=== PATIENT | male | born 1955 | race Caucasian/White ===

== ENCOUNTER 2017-08-21 12:00 | Inpatient (IN) | payer MEDICARE, MEDICAID ==
[~2017-08-21] VITALS: Ht 6038.7 cm; Wt 86.4 kg
[~2017-08-21 12:00] MED LIST: ASCO500C15 PO; CHOL10008 PO; FURO80TA3 PO; GABA-532 PO; HYDR-3965 PO; LACT10SO PO; MULT-1179 PO; POLY17PO10 PO; POTA20PA3
[2017-08-21 13:12] LABS: BASOPHILS % (AUTO) 0.3 % (0-1); EOSINOPHILS # (AUTO) 0.2 X10'3 (0-0.9); EOSINOPHILS % (AUTO) 2.2 % (0-6); HEMOGLOBIN 10.5 g/dl (14.0-17.9); LYMPHOCYTES # (AUTO) 1.4 X10'3 (1.1-4.8); LYMPHOCYTES % (AUTO) 18.9 % (21-51); MEAN CORPUSCULAR HGB CONC 33.8 % (33.0-36.5); MEAN CORPUSCULAR VOLUME 91.6 FL (78-98); MEAN PLATELET VOLUME 9.3 FL (7.4-10.4); MONOCYTES # (AUTO) 0.8 X10'3 (0-0.9); MONOCYTES % (AUTO) 11.3 % (2-12); NEUTROPHILS % (AUTO) 67.3 % (42-75); PLATELET COUNT 164 X10'3 (140-440); RED BLOOD COUNT 3.38 X10'6 (4.70-6.10); RED CELL DISTRIBUTION WIDTH 21.6 % (11.5-14.5); WHITE BLOOD COUNT 7.5 X10'3 (4.5-11.0)
[2017-08-21 13:23] LABS: INR 1.2 INR; PARTIAL THROMBOPLASTIN TIME 28 SECONDS (22-32); PROTHROMBIN TIME 12.8 SECONDS (9.0-12.0)
[2017-08-21 13:25] LABS: ALANINE AMINOTRANSFERASE 36 U/L (12-78); ALBUMIN 1.8 G/DL (3.4-5.0); ALBUMIN/GLOBULIN RATIO 0.3 (1.1-1.5); ALKALINE PHOSPHATASE 227 IU/L (46-116); ANION GAP 6 (8-16); ASPARTATE AMINO TRANSFERASE 43 U/L (10-37); BILIRUBIN,TOTAL 1.4 MG/DL (0.1-1.0); BLOOD UREA NITROGEN 22 MG/DL (7-18); BUN/CREATININE RATIO 17.1 (5.4-32.0); CALCIUM 8.8 MG/DL (8.5-10.1); CHLORIDE 113 MMOL/L (99-107); CREATININE 1.29 MG/DL (0.60-1.10); POTASSIUM 4.3 MMOL/L (3.5-5.1); SODIUM 144 MMOL/L (135-145); TOTAL CARBON DIOXIDE 24.8 MMOL/L (24-32); TOTAL PROTEIN 7.6 G/DL (6.4-8.2); eGFR 56 ML/MIN
[2017-08-21 13:26] LABS: GLUCOSE 98 MG/DL (70-104)
[2017-08-21] MEDS ORDERED: lactulose 20gm/30ml cup RC STA (13:33)
[2017-08-21] MEDS ORDERED: ondansetron/PF 4mg/2ml inj IV PRN (13:55)
[2017-08-21] MEDS ORDERED: insulin Lispro (HumaLOG) vial - multi-dose SQ SCH (13:55)
[2017-08-21] MEDS ORDERED: magnesium hydroxide 30ml (MOM) UD suspension PO PRN (13:55)
[2017-08-21] MEDS ORDERED: MESSAGE TO PHARMACY PO ONE (13:55)
[2017-08-21] MEDS ORDERED: magnesium 4gm in 100ml NS 100 ML IV PRN (13:55)
[2017-08-21] MEDS ORDERED: potassium Cl 40MEQ/NS 500ml 500 ML IV PRN ×2 (13:55)
[2017-08-21] MEDS ORDERED: dextrose ORAL solution 15 GM/59 ML bottle PO PRN ×2 (13:55)
[2017-08-21] MEDS ORDERED: mag hydrox/Alum hydrox/simeth 30ml oral suspension PO PRN (13:55)
[2017-08-21] MEDS ORDERED: potassium Cl 20 mEq SR tablet PO PRN ×2 (13:55)
[2017-08-21] MEDS ORDERED: dextrose 50%-water 50ml dispensing syringe IV PRN ×2 (13:55)
[2017-08-21] MEDS ORDERED: magnesium 2GM in 50ml NS 50 ML IV PRN (13:55)
[2017-08-21] MEDS ORDERED: acetaminophen 325mg tablet PO PRN (13:55)
[2017-08-21] MEDS ORDERED: magnesium Cl slow-release 64mg tablet PO PRN (13:55)
[2017-08-21] MEDS ORDERED: glucagon, human recombinant 1mg kit SUBCUT PRN (13:55)
[2017-08-21] MEDS: lactulose 20gm/30ml cup PO SCH ×2 (14:00→22:08)
[2017-08-21 14:29] LABS: CLARITY,URINE CLEAR (Clear); COLOR,URINE YELLOW (Yellow); GLUCOSE, URINE NEGATIVE (Neg); KETONES,URINE NEGATIVE (Neg); LEUKOCYTE ESTERASE ,URINE NEGATIVE (Neg); NITRITES, URINE NEGATIVE (Neg); OCCULT BLOOD,URINE NEGATIVE (Neg); PROTEIN,URINE NEGATIVE (Neg)
[2017-08-21 14:31] LABS: UA COLLECTION TYPE STRAIGHT CATH
[2017-08-21 14:41] LABS: URINE AMPHETAMINE SCREEN NEGATIVE (Neg); URINE BARBITUATE SCREEN NEGATIVE (Neg); URINE BENZODIAZEPINES SCREEN NEGATIVE (Neg); URINE CANNABINOID SCREEN NEGATIVE (Neg); URINE COCAINE SCREEN NEGATIVE (Neg); URINE METHADONE SCREEN NEGATIVE (Neg); URINE OPIATE SCREEN POSITIVE (Neg); URINE PHENCYCLIDINE SCREEN NEGATIVE (Neg)
[2017-08-21 15:43] LABS: HEMOGLOBIN A1C 4.3 % (4.5-6.2)
[2017-08-21] MEDS: insulin glargine (Lantus) pen - multi-dose SQ SCH (21:00)
[2017-08-22] MEDS: lactulose 20gm/30ml cup PO SCH ×4 (02:28→21:19)
[2017-08-22 06:36] LABS: ALBUMIN 1.5 G/DL (3.4-5.0); ANION GAP 10 (8-16); BLOOD UREA NITROGEN 20 MG/DL (7-18); BUN/CREATININE RATIO 15.2 (5.4-32.0); CALCIUM 8.8 MG/DL (8.5-10.1); CHLORIDE 121 MMOL/L (99-107); CREATININE 1.32 MG/DL (0.60-1.10); MAGNESIUM 1.8 MG/DL (1.5-2.4); POTASSIUM 3.7 MMOL/L (3.5-5.1); SODIUM 151 MMOL/L (135-145); TOTAL CARBON DIOXIDE 20.5 MMOL/L (24-32); eGFR 55 ML/MIN
[2017-08-22 06:45] LABS: GLUCOSE 85 MG/DL (70-104)
[2017-08-22 08:00] VITALS: BP 122/57
[2017-08-22] MEDS: K and/or MAG REPLACEMENT MC SCH (08:00)
[2017-08-22] MEDS: sodium chloride 0.45% 1,000 ML IV SCH ×3 (08:44→21:14)
[2017-08-22] MEDS ORDERED: OMEP-50 (10:56)
[2017-08-22] MEDS ORDERED: NEOM500T13 PO ×2 (10:56)
[2017-08-22] MEDS ORDERED: PROP10TA10 (10:56)
[2017-08-22] MEDS ORDERED: HYDR-565 PO (10:57)
[2017-08-22 11:00] VITALS: BP 130/59
[2017-08-22 15:00] VITALS: BP 126/56
[2017-08-22 15:25] LABS: ALBUMIN 1.8 G/DL (3.4-5.0); ANION GAP 9 (8-16); BLOOD UREA NITROGEN 20 MG/DL (7-18); BUN/CREATININE RATIO 15.3 (5.4-32.0); CALCIUM 9.1 MG/DL (8.5-10.1); CHLORIDE 113 MMOL/L (99-107); CREATININE 1.31 MG/DL (0.60-1.10); POTASSIUM 3.9 MMOL/L (3.5-5.1); SODIUM 145 MMOL/L (135-145); TOTAL CARBON DIOXIDE 23.1 MMOL/L (24-32); eGFR 55 ML/MIN
[2017-08-22 15:26] LABS: GLUCOSE 106 MG/DL (70-104)
[2017-08-22 19:00] VITALS: BP 133/55
[2017-08-22] MEDS: insulin glargine (Lantus) pen - multi-dose SQ SCH (21:00)
[2017-08-22] MEDS: enoxaparin 40mg/0.4ml syringe SUBCUT SCH (21:21)
[2017-08-22 23:00] VITALS: BP 122/66
[2017-08-23] MEDS: lactulose 20gm/30ml cup PO SCH ×4 (02:03→20:36)
[2017-08-23 03:00] VITALS: BP 118/53
[2017-08-23 06:00] VITALS: BP 135/52
[2017-08-23] MEDS: K and/or MAG REPLACEMENT MC SCH (08:00)
[2017-08-23 08:46] LABS: BASOPHILS % (AUTO) 0.7 % (0-1); EOSINOPHILS # (AUTO) 0.4 X10'3 (0-0.9); EOSINOPHILS % (AUTO) 5.2 % (0-6); HEMATOCRIT 27.3 % (42.0-52.0); HEMOGLOBIN 9.4 g/dl (14.0-17.9); LYMPHOCYTES # (AUTO) 1.6 X10'3 (1.1-4.8); LYMPHOCYTES % (AUTO) 23.9 % (21-51); MEAN CORPUSCULAR HEMOGLOBIN 31.5 PG (27.0-31.0); MEAN CORPUSCULAR HGB CONC 34.6 % (33.0-36.5); MEAN CORPUSCULAR VOLUME 90.9 FL (78-98); MEAN PLATELET VOLUME 9.8 FL (7.4-10.4); MONOCYTES # (AUTO) 0.7 X10'3 (0-0.9); MONOCYTES % (AUTO) 10.4 % (2-12); NEUTROPHILS % (AUTO) 59.8 % (42-75); PLATELET COUNT 143 X10'3 (140-440); RED CELL DISTRIBUTION WIDTH 21.4 % (11.5-14.5); WHITE BLOOD COUNT 6.7 X10'3 (4.5-11.0)
[2017-08-23] MEDS: enoxaparin 40mg/0.4ml syringe SUBCUT SCH (09:22)
[2017-08-23] MEDS: sodium chloride 0.45% 1,000 ML IV SCH ×2 (09:23→16:25)
[2017-08-23 11:00] VITALS: BP 132/51
[2017-08-23] MEDS ORDERED: pantoprazole 40 MG vial IV ONE (14:50)
[2017-08-23 15:00] VITALS: BP 130/51
[2017-08-23] MEDS: neomycin sulfate 500mg tablet PO SCH (17:18)
[2017-08-23 19:00] VITALS: BP 147/64
[2017-08-23] MEDS: furosemide 40mg tablet PO SCH (20:36)
[2017-08-23] MEDS: insulin glargine (Lantus) pen - multi-dose SQ SCH (20:36)
[2017-08-23 23:00] VITALS: BP 120/45
[2017-08-24] MEDS: neomycin sulfate 500mg tablet PO SCH ×3 (00:10→18:02)
[2017-08-24] MEDS: sodium chloride 0.45% 1,000 ML IV SCH ×3 (00:25→13:55)
[2017-08-24] MEDS: lactulose 20gm/30ml cup PO SCH ×4 (01:55→21:00)
[2017-08-24 03:00] VITALS: BP 116/52
[2017-08-24 06:00] VITALS: BP 112/44
[2017-08-24] MEDS: K and/or MAG REPLACEMENT MC SCH (08:00)
[2017-08-24] MEDS: pantoprazole 40 MG vial IV SCH (09:19)
[2017-08-24] MEDS: furosemide 40mg tablet PO SCH ×2 (09:20→21:00)
[2017-08-24] MEDS: ascorbic acid 500mg tablet PO SCH (09:20)
[2017-08-24] MEDS: multivitamins, therapeutics tablet PO SCH (09:20)
[2017-08-24] MEDS: gabapentin 300mg capsule PO SCH (09:20)
[2017-08-24] MEDS: vitamin D (cholecalciferol) 1,000 unit tablet PO SCH (09:21)
[2017-08-24 15:00] VITALS: BP 126/39
[2017-08-24] MEDS ORDERED: magnesium Cl slow-release 64mg tablet PO PRN (18:45)
[2017-08-24 19:00] VITALS: BP 133/56
[2017-08-24] MEDS: insulin glargine (Lantus) pen - multi-dose SQ SCH (20:51)
[2017-08-24] MEDS: lactobacillus rhamnosus 10,000 MMU CELLS/CAPSULE PO SCH (20:59)
[2017-08-24 23:00] VITALS: BP 103/47
[2017-08-25] MEDS: sodium chloride 0.45% 1,000 ML IV SCH ×3 (00:40→16:31)
[2017-08-25] MEDS: lactulose 20gm/30ml cup PO SCH ×4 (01:44→20:16)
[2017-08-25] MEDS: neomycin sulfate 500mg tablet PO SCH ×3 (01:44→16:31)
[2017-08-25 03:00] VITALS: BP 106/49
[2017-08-25 06:00] VITALS: BP 99/45
[2017-08-25] MEDS: K and/or MAG REPLACEMENT MC SCH (08:00)
[2017-08-25] MEDS: lactobacillus rhamnosus 10,000 MMU CELLS/CAPSULE PO SCH ×2 (08:54→20:17)
[2017-08-25] MEDS: pantoprazole 40 MG vial IV SCH (08:54)
[2017-08-25] MEDS: vitamin D (cholecalciferol) 1,000 unit tablet PO SCH (08:55)
[2017-08-25] MEDS: ascorbic acid 500mg tablet PO SCH (08:55)
[2017-08-25] MEDS: gabapentin 300mg capsule PO SCH (08:55)
[2017-08-25] MEDS: multivitamins, therapeutics tablet PO SCH (08:55)
[2017-08-25] MEDS: furosemide 40mg tablet PO SCH ×2 (08:55→20:17)
[2017-08-25 11:00] VITALS: BP 114/53
[2017-08-25 15:00] VITALS: BP 128/42
[2017-08-25 19:30] VITALS: BP 133/64
[2017-08-25] MEDS: insulin glargine (Lantus) pen - multi-dose SQ SCH (20:58)
[2017-08-25 21:58] VITALS: BP 130/60
[2017-08-26] MEDS: neomycin sulfate 500mg tablet PO SCH ×2 (00:02→08:40)
[2017-08-26] MEDS: sodium chloride 0.45% 1,000 ML IV SCH ×2 (00:06→09:10)
[2017-08-26] MEDS: lactulose 20gm/30ml cup PO SCH ×3 (00:54→14:25)
[2017-08-26 06:00] VITALS: BP_SYST 102; BP_SYST 106; BP_SYST 126; BP_DIAS 36; BP_DIAS 76; BP_DIAS 83
[2017-08-26] MEDS: K and/or MAG REPLACEMENT MC SCH (08:00)
[2017-08-26] MEDS: pantoprazole 40 MG vial IV SCH (08:25)
[2017-08-26] MEDS: lactobacillus rhamnosus 10,000 MMU CELLS/CAPSULE PO SCH (08:37)
[2017-08-26] MEDS: furosemide 40mg tablet PO SCH (08:39)
[2017-08-26] MEDS: multivitamins, therapeutics tablet PO SCH (08:41)
[2017-08-26] MEDS: gabapentin 300mg capsule PO SCH (08:41)
[2017-08-26] MEDS: vitamin D (cholecalciferol) 1,000 unit tablet PO SCH (08:42)
[2017-08-26] MEDS: ascorbic acid 500mg tablet PO SCH (08:42)
[2017-08-26 10:00] VITALS: BP 125/60
[2017-08-27] MEDS ORDERED: pantoprazole 40mg Tablet.DR PO SCH (07:30)
== END 2017-08-26 15:50 | DRG 441 ==
LOC: ER 12:00 → EDBD 13:51 → ED HOLD 13:51 → PCU 3S 08-22 08:27 → ORTHO 4S 08-25 18:45
PROVIDERS: ADMIT Internal Medicine; ATTEND Family Medicine
DX: K72.90 Hepatic failure, unspecified without coma (principal); E43 Unspecified severe protein-calorie malnutrition; I85.10 Secondary esophageal varices without bleeding; I48.91 Unspecified atrial fibrillation; Z89.611 Acquired absence of right leg above knee; K26.9 Duodenal ulcer, unspecified as acute or chronic, without hemorrhage or perforation; K70.30 Alcoholic cirrhosis of liver without ascites; I25.10 Atherosclerotic heart disease of native coronary artery without angina pectoris; I73.9 Peripheral vascular disease, unspecified; N18.9 Chronic kidney disease, unspecified; K21.9 Gastro-esophageal reflux disease without esophagitis; F10.20 Alcohol dependence, uncomplicated; Z91.14 Patient's other noncompliance with medication regimen; Z95.1 Presence of aortocoronary bypass graft; Z79.899 Other long term (current) drug therapy; Z86.73 Personal history of transient ischemic attack (TIA), and cerebral infarction without residual deficits
CPT/HCPCS: 36415; 71045; 80048; 80053; 80305; 81003; 82140; 82948; 83036; 83735; 84484; 85025; 85610; 85730; 87070; 93005; 93922; 93926; 99285; A4344; A6212; A6213; A6250; A6258; A6266; A6446; A6449; C9113; J1650; J1815; J2405; J7030

== ENCOUNTER 2017-09-04 08:45 | Day surgery (SDC) | payer MEDICARE, MEDICAID ==
[~2017-09-04 08:45] MED LIST changes: -HYDR-3965 PO; +HYDR-565 PO; +NEOM500T13 PO; +PROP10TA10
[2017-09-04] MEDS ORDERED: LIDOcaine 2% 5ml jelly ONE (09:25)
[2017-09-04] MEDS ORDERED: LACTC PO (15:21)
[2017-09-04] MEDS ORDERED: FURO80TA3 PO (15:22)
[2017-09-04] MEDS ORDERED: ZIN220C PO (15:25)
[2017-09-04] MEDS ORDERED: SULF1TAB49 PO (15:39)
== END 2017-09-04 10:45 | disposition home or self-care (01) ==
LOC: WOUND CARE 08:45
PROVIDERS: ATTEND Surgery
DX: T87.81 Dehiscence of amputation stump (principal); E11.622 Type 2 diabetes mellitus with other skin ulcer; L89.894 Pressure ulcer of other site, stage 4; L97.111 Non-pressure chronic ulcer of right thigh limited to breakdown of skin; L98.491 Non-pressure chronic ulcer of skin of other sites limited to breakdown of skin; L97.811 Non-pressure chronic ulcer of other part of right lower leg limited to breakdown of skin; E11.621 Type 2 diabetes mellitus with foot ulcer; L97.421 Non-pressure chronic ulcer of left heel and midfoot limited to breakdown of skin; L89.629 Pressure ulcer of left heel, unspecified stage; E11.42 Type 2 diabetes mellitus with diabetic polyneuropathy; E11.51 Type 2 diabetes mellitus with diabetic peripheral angiopathy without gangrene; I77.1 Stricture of artery; I48.2 Chronic atrial fibrillation; I25.10 Atherosclerotic heart disease of native coronary artery without angina pectoris; J44.9 Chronic obstructive pulmonary disease, unspecified; K21.9 Gastro-esophageal reflux disease without esophagitis; E11.22 Type 2 diabetes mellitus with diabetic chronic kidney disease; I13.0 Hypertensive heart and chronic kidney disease with heart failure and stage 1 through stage 4 chronic kidney disease, or unspecified chronic kidney disease; I50.9 Heart failure, unspecified; E66.9 Obesity, unspecified; E11.69 Type 2 diabetes mellitus with other specified complication; M86.671 Other chronic osteomyelitis, right ankle and foot; M86.661 Other chronic osteomyelitis, right tibia and fibula; M19.90 Unspecified osteoarthritis, unspecified site; H54.8 Legal blindness, as defined in USA; F17.210 Nicotine dependence, cigarettes, uncomplicated; Z68.27 Body mass index [BMI] 27.0-27.9, adult; Z79.01 Long term (current) use of anticoagulants; Z79.82 Long term (current) use of aspirin; Z79.899 Other long term (current) drug therapy; Z86.73 Personal history of transient ischemic attack (TIA), and cerebral infarction without residual deficits; Y83.5 Amputation of limb(s) as the cause of abnormal reaction of the patient, or of later complication, without mention of misadventure at the time of the procedure
CPT/HCPCS: 11042; 87070; 87075; 87102; 87176; 87186; 97597; A6021; A6206; A6209; A6212; A6266; A6446; 87077